=== PATIENT | male | born 1950 | race Caucasian/White ===

== ENCOUNTER → 2016-08-21 | Outpatient (CLI) | payer BC, MEDICARE ==
[~2016-08-21] MED LIST: ATORVASTATIN CA10 MG PO; AZELASTINE137 MCG/0. BOTH NARES; B-50 COMPLEX1 EACH PO; CIALIS20 MG PO; CO Q-10200 MG PO; CYCLOBENZAPRINE5 MG PO; DESLORATADINE5 MG PO; ERGOCALCIF50000 UNIT PO; LIPITOR10 MG PO; LYRICA100 MG PO; MELOXICAM15 MG PO; METOCLOPRAMIDE H5 MG PO; NASONEX17 GM BOTH NARES; NEXIUM40 MG PO; PHOSPHA250 MG PO; PRAMIPEXOLE D0.25 MG PO; TOPIRAMATE50 MG PO; TRAMADOL HCL50 MG PO; TRAZODONE HCL50 MG PO; VALSARTAN80 MG PO; VITAMIN B122500 MCG PO; VITAMIN C1000 MG PO; ZINC50 M1 PO; ZOLMITRIPTAN5 MG PO
== END | disposition home or self-care (01) ==
LOC: CDC 09:22
DX: R00.1 Bradycardia, unspecified (principal); M75.01 Adhesive capsulitis of right shoulder
CPT/HCPCS: 93000